=== PATIENT | female | born 1960 | race Caucasian/White ===

== ENCOUNTER 2017-07-04 09:23 | Emergency (ER) | payer MEDICAID, OTHER ==
[~2017-07-04] VITALS: Ht 167.6 cm; Wt 103.3 kg
[2017-07-04] MEDS ORDERED: DIPHENHYDRAMINE 50 MG/ML, 1ML ONE (10:28)
[2017-07-04 10:30] LABS: HEMATOCRIT 43.3 % (34.6-47.8); HEMOGLOBIN 14.6 g/dL (11.7-16.4); WHITE BLOOD COUNT 7.1 x10^3/uL (3.4-10)
[2017-07-04] MEDS ORDERED: DIPHENHYDRAMINE 50 MG/ML, 1ML IVPush ONE (10:30)
[2017-07-04] MEDS ORDERED: SODIUM CHLORIDE FLUSH 10ML SYR IVF ONE (10:30)
[2017-07-04 10:43] LABS: ASPARTATE AMINO TRANSFERASE 22 U/L (15-37); BLOOD UREA NITROGEN 17 mg/dL (7-18)
[2017-07-04 14:30] VITALS: BP 124/84
[2017-07-04 14:41] LABS: HIV 1&2 ANTIBODY SCREEN Nonreactive (Nonreactive); HIV-1 p24 ANTIGEN Nonreactive (Nonreactive)
[2017-07-06 00:06] LABS: ABSOLUTE CD 4 HELPER 1457 /uL (359-1519); HEMATOCRIT 42.6 % (34.0-46.6); HEMOGLOBIN 13.8 g/dL (11.1-15.9); IMMATURE GRANULOCYTES 0 % (.); MCH 28.9 pg (26.6-33.0); MCHC 32.4 g/dL (31.5-35.7); MCV 89 fL (79-97); MONOCYTES 9 % (.); NEUTROPHILS 59 % (.); NEUTROPHILS (ABSOLUTE) 4.2 x10E3/uL (1.4-7.0); PLATELETS 186 x10E3/uL (150-379); RBC 4.77 x10E6/uL (3.77-5.28); RDW 14.4 % (12.3-15.4); WBC 7.1 x10E3/uL (3.4-10.8)
== END 2017-07-04 15:38 ==
LOC: ED 11:00
DX: B34.9 Viral infection, unspecified (principal); R21 Rash and other nonspecific skin eruption
CPT/HCPCS: 36415; 71010; 80053; 81003; 83605; 85025; 86361; 86658; 86703; 87529; 87899; 93005; 96374; 99285; J1200; G0435

== ENCOUNTER 2018-08-23 10:33 | Emergency (ER) | payer OTHER ==
[~2018-08-23] VITALS: Ht 167.6 cm; Wt 102.6 kg
[2018-08-23 10:36] VITALS: BP 141/88
[2018-08-23] MEDS ORDERED: KETOROLAC 30 MG/1 ML IM ONE (11:00)
[2018-08-23] MEDS ORDERED: KETOROLAC 30 MG/1 ML ONE (11:03)
[2018-08-23 11:12] LABS: CULTURE INDICATED? YES; MICROSCOPIC INDICATED
== END 2018-08-23 12:16 | disposition home or self-care (01) ==
LOC: ED 12:10
DX: S32.039A Unspecified fracture of third lumbar vertebra, initial encounter for closed fracture (principal); M51.36 Other intervertebral disc degeneration, lumbar region; M54.10 Radiculopathy, site unspecified; X58.XXXA Exposure to other specified factors, initial encounter; Y93.89 Activity, other specified; Y92.89 Other specified places as the place of occurrence of the external cause; Y99.8 Other external cause status
CPT/HCPCS: 72110; 81001; 87077; 87086; 87186; 96372; 99285; J1885

== ENCOUNTER 2018-10-19 10:37 | Emergency (ER) | payer SELFPAY ==
[~2018-10-19] VITALS: Ht 167.6 cm; Wt 99.2 kg
[2018-10-19 10:38] VITALS: BP 158/83
--- NOTE | 2018-10-19 11:00 | NUR ---
PT TO ROOM W/ C/O COUGH, CONGESTION SINCE TUESDAY. PT RESTING ON [facility].
== END 2018-10-19 11:06 | disposition home or self-care (01) ==
LOC: ED 10:53
DX: J01.00 Acute maxillary sinusitis, unspecified (principal); F17.200 Nicotine dependence, unspecified, uncomplicated; M19.90 Unspecified osteoarthritis, unspecified site; Z86.19 Personal history of other infectious and parasitic diseases; Z87.01 Personal history of pneumonia (recurrent)
CPT/HCPCS: 99283

== ENCOUNTER 2019-05-03 11:12 | Emergency (ER) | payer SELFPAY ==
[~2019-05-03] VITALS: Ht 167.6 cm; Wt 95.0 kg
--- NOTE | 2019-05-03 11:25 | NUR ---
patient arrives to er with swelling in right side of mandible/face/mouth that began this morning. she has no sob. this has happened to her before, and she was hospitalized in [place] for this. she has no known reason known for this occurance. she is aox4. she states her eye feels like its itchy/twitching. she has nausea and dizziness. placed on full montor, rails up. vss.
[2019-05-03] MEDS ORDERED: DIPHENHYDRAMINE 50 MG/ML, 1ML IVPush ONE (11:30)
[2019-05-03] MEDS ORDERED: methylPREDNISolone SOD SUCC 125 MG/2 ML IVPush SCH (11:30)
[2019-05-03] MEDS ORDERED: DIPHENHYDRAMINE 50 MG/ML, 1ML ONE (11:42)
[2019-05-03] MEDS ORDERED: methylPREDNISolone SOD SUCC 125 MG/2 ML ONE (11:43)
--- NOTE | 2019-05-03 12:02 | NUR ---
Anjana hall in ED - 05/03/19 at 1202 by DOYLE aware critical glucose and labs.
--- NOTE | 2019-05-03 12:03 | NUR ---
patient feeling dizzy and light headed
--- NOTE | 2019-05-03 12:55 | NUR ---
patient in bed on monitor, rails up. still feels nauseated and dizzy.
--- NOTE | 2019-05-03 13:36 | NUR ---
patient states she's feeling better. lip less swollen. patient states she has no more nausea. dizziness minor and getting better
[2019-05-03 13:53] VITALS: BP 178/105
--- NOTE | 2019-05-03 13:54 | NUR ---
patient discharge teaching reviewed. shows understanding.
== END 2019-05-03 14:03 | disposition home or self-care (01) ==
LOC: ED 11:39
DX: L50.9 Urticaria, unspecified (principal); F17.200 Nicotine dependence, unspecified, uncomplicated; Z90.710 Acquired absence of both cervix and uterus
CPT/HCPCS: 96374; 96375; 99283; J1200; J2930

== ENCOUNTER 2019-05-31 16:10 | Emergency (ER) | payer SELFPAY ==
[~2019-05-31] VITALS: Ht 167.6 cm; Wt 96.9 kg
[2019-05-31 17:47] VITALS: BP 136/82
== END 2019-05-31 19:16 | disposition home or self-care (01) ==
LOC: ED 18:38
DX: T78.3XXA Angioneurotic edema, initial encounter (principal); F17.200 Nicotine dependence, unspecified, uncomplicated; Z90.710 Acquired absence of both cervix and uterus
CPT/HCPCS: 93005; 99284; J7512; Q0177

== ENCOUNTER 2021-06-13 08:53 | Emergency (ER) | payer OTHER ==
[~2021-06-13] VITALS: Ht 167.6 cm; Wt 106.0 kg
[2021-06-13 10:25] LABS: BASOPHILS % (AUTO) 1 % (0-1); EOSINOPHILS % (AUTO) 2 % (1-7); LYMPHOCYTES % (AUTO) 27 % (22-44); MEAN PLATELET VOLUME 10.7 fL (7.4-10.4); MONOCYTES % (AUTO) 8 % (2-9); NEUTROPHILS % (AUTO) 62 % (42-75); PLATELET COUNT 163 x10^3/uL (130-400); RED BLOOD COUNT 4.64 x10^6/uL (3.82-5.3); RED CELL DISTRIBUTION WIDTH 14.5 % (9.6-15.2)
[2021-06-13 10:28] LABS: ALBUMIN 3.3 g/dL (3.4-5.0); ANION GAP 6 mmol/L (5-15); CALCIUM 8.9 mg/dL (8.5-10.1); CHLORIDE 109 mmol/L (98-107); CREATININE 0.61 mg/dL (0.55-1.02)
[2021-06-13 10:31] LABS: TROPONIN I < 0.015 ng/mL (0.000-0.045)
--- NOTE | 2021-06-13 11:04 | NUR ---
PT UPRIGHT ON GURNEY AWAKE & COMFORTABLE WATCHING TV, RESPONDS APPROP TO STAFF, NAD, NO NEEDS AT THS TIME, CALL LIGHT WITHIN REACH.
[2021-06-13 11:36] VITALS: BP 129/70
--- NOTE | 2021-06-13 11:36 | NUR ---
Patient given discharge instructions and they have confirmed that they understand the instructions. Patient ambulatory with steady gait. NAD, all questions answered appropriately, denies additional needs at this time. No personal belongings left in room after discharge.
== END 2021-06-13 11:47 | disposition home or self-care (01) ==
LOC: ED 11:45
DX: J45.41 Moderate persistent asthma with (acute) exacerbation (principal); R07.9 Chest pain, unspecified; M19.90 Unspecified osteoarthritis, unspecified site; Z90.710 Acquired absence of both cervix and uterus; Z87.891 Personal history of nicotine dependence
CPT/HCPCS: 36415; 71045; 80048; 82040; 84484; 85025; 93005; 99285